=== PATIENT | female | born 1945 | race Caucasian/White ===

== ENCOUNTER 2016-06-03 14:42 | Day surgery (SDC) | payer OTHER ==
[~2016-06-03] VITALS: Ht 157.5 cm; Wt 98.0 kg
[~2016-06-03 14:42] MED LIST: ASMANEX TW200 MICRO1 IH; BENTYL10 MG PO; DESYREL100 MG PO; ESOMEPRAZOLE MA40 MG PO; NEURONTIN600 MG PO; PRAVACHOL40 MG PO; QUESTRAN PACKET4 GM PO; ROBAXIN500 MG PO; SINGULAIR CHEWAB5 MG PO; SYNTHROID88 MCG PO; TENORMIN25 MG PO; TRICOR145 MG PO; ULTRAM ER100 MG PO; VENTOLIN HFA18 GM IH; ZYRTEC10 M2 PO
== END 2016-06-03 16:40 | disposition home or self-care (01) ==
LOC: PAIN 14:42 → SDC 15:15 → PAIN 16:40
PROC: 3E0U33Z Introduction of Anti-inflammatory into Joints, Percutaneous Approach (ICD-10-PCS; principal; 2016-06-03)
DX: M46.1 Sacroiliitis, not elsewhere classified (principal); F41.1 Generalized anxiety disorder; J45.909 Unspecified asthma, uncomplicated; M19.90 Unspecified osteoarthritis, unspecified site; M54.5 Low back pain; K21.9 Gastro-esophageal reflux disease without esophagitis; M79.1 Myalgia; M54.2 Cervicalgia; G47.33 Obstructive sleep apnea (adult) (pediatric)
CPT/HCPCS: J1030; J2250; J3010; S0020

== ENCOUNTER 2016-07-03 10:11 | Day surgery (SDC) | payer OTHER ==
[~2016-07-03] VITALS: Ht 157.5 cm; Wt 98.0 kg
[~2016-07-03 10:11] MED LIST changes: +NEXIUM40 MG PO; +TYLENOL ARTHRI650 MG PO
== END 2016-07-03 13:40 | disposition home or self-care (01) ==
LOC: PAIN 10:11 → SDC 11:00 → PAIN 13:40
PROC: 3E0S33Z Introduction of Anti-inflammatory into Epidural Space, Percutaneous Approach (ICD-10-PCS; principal; 2016-07-03)
DX: M50.13 Cervical disc disorder with radiculopathy, cervicothoracic region (principal); F41.9 Anxiety disorder, unspecified; M47.816 Spondylosis without myelopathy or radiculopathy, lumbar region; G62.9 Polyneuropathy, unspecified; M46.1 Sacroiliitis, not elsewhere classified; M75.52 Bursitis of left shoulder; M75.51 Bursitis of right shoulder; I49.9 Cardiac arrhythmia, unspecified; K21.9 Gastro-esophageal reflux disease without esophagitis; E03.9 Hypothyroidism, unspecified; M19.90 Unspecified osteoarthritis, unspecified site; E78.5 Hyperlipidemia, unspecified; K58.9 Irritable bowel syndrome, unspecified; G47.00 Insomnia, unspecified; E66.9 Obesity, unspecified; Z68.38 Body mass index [BMI] 38.0-38.9, adult; Z88.8 Allergy status to other drugs, medicaments and biological substances
CPT/HCPCS: J1030; J2250; J3010

== ENCOUNTER 2016-07-05 13:59 | Inpatient (IN) | payer OTHER ==
[~2016-07-05] VITALS: Ht 157.5 cm; Wt 94.7 kg
[2016-07-05 15:24] LABS: HEMATOCRIT 35.6 % (36.0-46.0); MCH 29.6 PG (29.0-34.0); MCHC 33.4 G/DL (30.0-36.0); MCV 88.6 FL (83-99); MEAN PLAT.VOLUME 9.3 uM^3 (9.5-12.4); PLATELET COUNT 292 K/uL (156-360); RBC DIS.WIDTH-CV 13.2 % (11.8-14.6); RBC DIS.WIDTH-SD 41.7 % (39-53); RED BLOOD COUNT 4.02 M/uL (3.80-5.20); WHITE BLOOD COUNT 18.2 K/uL (4.1-10.2)
[2016-07-05 15:25] LABS: EOSINOPHIL (%) 0.4 % (0-5); EOSINOPHIL COUNT 0.1 K/uL (0-0.3); IMMATURE GRANULOCYTE (%) 0.2 % (0.0-0.7); IMMATURE GRANULOCYTE COUNT 0.4 K/uL; LYMPHOCYTE COUNT 2.1 K/uL (1.0-2.8); MONOCYTE (%) 8.8 % (3-12); MONOCYTE COUNT 1.6 K/uL (0-0.8); NEUTROPHIL (%) 79.1 % (45-76); NEUTROPHIL COUNT 14.4 K/uL (1.8-6.4)
[2016-07-05 15:36] LABS: CHLORIDE 100 mEq/L (99-109); POTASSIUM 3.6 mEq/L (3.7-5.4); SODIUM 134 mEq/L (136-147)
[2016-07-05 15:38] LABS: GLUCOSE 147 mg/dL (70-99)
[2016-07-05 15:39] LABS: ANION GAP 11 MEQ/L (2-14)
[2016-07-05 15:42] LABS: GFR ESTIMATE (CALCULATED) > 59 mL/min/
[2016-07-05 15:43] LABS: UREA NITROGEN (BUN) 9 mg/dL (9-23)
[2016-07-05 16:30] LABS: ADD MIUA? YES; BILIRUBIN NEGATIVE; BLOOD NEGATIVE; COLOR AMBER ((YELLOW)); GLUCOSE (STRIP) NEGATIVE; KETONES NEGATIVE; LEUKOCYTES TRACE; NITRITE NEGATIVE; PROTEIN (STRIP) NEGATIVE; SPECIFIC GRAVITY 1.017 (1.000-1.030); UROBILINOGEN 0.2 MG/DL (0.2-1.0)
[2016-07-05 16:45] LABS: BACTERIA RARE /HPF; EPITHELIAL CELLS RARE /HPF; MUCUS TRACE /LPF; RED BLOOD CELLS 0-5 /HPF (0-5); UCUL ADDED? NO
[2016-07-05] MEDS ORDERED: ZYRTEC10 M2 PO (21:24)
[2016-07-05] MEDS ORDERED: SYNTHROID88 MCG PO (21:32)
[2016-07-05 22:38] LABS: POINT-OF-CARE METER ID UU14100415
[2016-07-06] VITALS (8 sets, daily range): BP systolic 111–149; BP diastolic 58–83
[2016-07-06 11:38] LABS: EOSINOPHIL (%) 0.4 % (0-5); EOSINOPHIL COUNT 0.1 K/uL (0-0.3); HEMATOCRIT 35.1 % (36.0-46.0); IMMATURE GRANULOCYTE (%) 0.3 % (0.0-0.7); IMMATURE GRANULOCYTE COUNT 0.1 K/uL; LYMPHOCYTE COUNT 1.7 K/uL (1.0-2.8); MCHC 32.8 G/DL (30.0-36.0); MCV 88.6 FL (83-99); MEAN PLAT.VOLUME 9.3 uM^3 (9.5-12.4); MONOCYTE (%) 10.4 % (3-12); MONOCYTE COUNT 1.5 K/uL (0-0.8); NEUTROPHIL (%) 76.8 % (45-76); NEUTROPHIL COUNT 11.1 K/uL (1.8-6.4); PLATELET COUNT 279 K/uL (156-360); RBC DIS.WIDTH-CV 13.4 % (11.8-14.6); RBC DIS.WIDTH-SD 43.1 % (39-53); RED BLOOD COUNT 3.96 M/uL (3.80-5.20); WHITE BLOOD COUNT 14.5 K/uL (4.1-10.2)
[2016-07-06 12:03] LABS: ANION GAP 7 MEQ/L (2-14); CHLORIDE 102 MEQ/L (99-109); GFR ESTIMATE (CALCULATED) > 59 mL/min/; GLUCOSE 135 mg/dL (70-99); POTASSIUM 3.3 MEQ/L (3.7-5.4); SAMPLE HEMOLYSIS CHECK 0; SAMPLE ICTERIC CHECK 0; SAMPLE LIPEMIA CHECK 0; SODIUM 138 MEQ/L (136-147); UREA NITROGEN (BUN) 10 mg/dL (9-23)
[2016-07-06 13:59] LABS: C DIFF TOXIN NEGATIVE (NEGATIVE); PROBE CHECK PASS; SPECIMEN PROCESSING CONTROL PASS
[2016-07-07 03:28] VITALS: BP 114/60
[2016-07-07 07:51] LABS: EOSINOPHIL (%) 1.2 % (0-5); EOSINOPHIL COUNT 0.1 K/uL (0-0.3); HEMATOCRIT 34.9 % (36.0-46.0); IMMATURE GRANULOCYTE (%) 0.3 % (0.0-0.7); LYMPHOCYTE COUNT 2.2 K/uL (1.0-2.8); MCH 28.8 PG (29.0-34.0); MCHC 32.4 G/DL (30.0-36.0); MEAN PLAT.VOLUME 9.7 uM^3 (9.5-12.4); MONOCYTE (%) 7.5 % (3-12); MONOCYTE COUNT 0.7 K/uL (0-0.8); NEUTROPHIL (%) 68.3 % (45-76); NEUTROPHIL COUNT 6.5 K/uL (1.8-6.4); PLATELET COUNT 303 K/uL (156-360); RBC DIS.WIDTH-CV 13.5 % (11.8-14.6); RBC DIS.WIDTH-SD 43.7 % (39-53); RED BLOOD COUNT 3.92 M/uL (3.80-5.20); WHITE BLOOD COUNT 9.6 K/uL (4.1-10.2)
[2016-07-07 08:09] LABS: ANION GAP 10 MEQ/L (2-14); CHLORIDE 104 MEQ/L (99-109); GFR ESTIMATE (CALCULATED) > 59 mL/min/; GLUCOSE 112 mg/dL (70-99); POTASSIUM 3.7 MEQ/L (3.7-5.4); SAMPLE HEMOLYSIS CHECK 0; SAMPLE ICTERIC CHECK 0; SAMPLE LIPEMIA CHECK 0; SODIUM 142 MEQ/L (136-147); UREA NITROGEN (BUN) 12 mg/dL (9-23)
[2016-07-07 08:16] VITALS: BP 124/56
[2016-07-07 11:42] VITALS: BP 107/52
[2016-07-07 16:00] VITALS: BP 127/75
[2016-07-07 20:00] VITALS: BP 132/60
[2016-07-07 23:56] VITALS: BP 121/57
[2016-07-08 03:32] VITALS: BP 116/57
[2016-07-08 07:57] VITALS: BP 120/64
[2016-07-08 11:29] VITALS: BP 142/65
== END 2016-07-08 15:36 | disposition home or self-care (01) | DRG 690 ==
LOC: EME 13:59 → EDOF 07-06 00:35 → 2EAST 07-06 00:35
PROVIDERS: Emergency Medicine; Hospitalist; Internal Medicine
DX: N39.0 Urinary tract infection, site not specified (principal); R50.9 Fever, unspecified; D72.829 Elevated white blood cell count, unspecified; I10 Essential (primary) hypertension; Z98.890 Other specified postprocedural states; E03.9 Hypothyroidism, unspecified; M50.90 Cervical disc disorder, unspecified, unspecified cervical region
CPT/HCPCS: 70450; 70553; 71010; 72156; 80048; 81003; 82948; 83605; 85025; 87040; 87086; 87493; 99202; 99281; 99285; J0696; J1650; J2543; J3370; J7050

== ENCOUNTER 2016-08-26 09:02 | Day surgery (SDC) | payer OTHER ==
[~2016-08-26] VITALS: Ht 157.5 cm; Wt 97.5 kg
[~2016-08-26 09:02] MED LIST changes: +B-1100 MG PO; +CITRACAL + D C1 EACH PO; +NAPROSYN500 MG PO; +VITAMIN B-6250 MG PO; +VITAMIN D-32000 UNI2 PO
[2016-08-26] MEDS ORDERED: CALCIUM 500 MG1 EACH PO (09:35)
== END 2016-08-26 10:40 | disposition home or self-care (01) ==
LOC: PAIN 09:02 → SDC 09:45 → PAIN 09:45
PROC: 015B3ZZ Destruction of Lumbar Nerve, Percutaneous Approach (ICD-10-PCS; principal; 2016-08-26)
DX: M47.816 Spondylosis without myelopathy or radiculopathy, lumbar region (principal); F41.9 Anxiety disorder, unspecified; M51.36 Other intervertebral disc degeneration, lumbar region; G62.9 Polyneuropathy, unspecified; M50.90 Cervical disc disorder, unspecified, unspecified cervical region; M54.12 Radiculopathy, cervical region; M46.1 Sacroiliitis, not elsewhere classified; K21.9 Gastro-esophageal reflux disease without esophagitis; I49.9 Cardiac arrhythmia, unspecified; E03.9 Hypothyroidism, unspecified; M19.90 Unspecified osteoarthritis, unspecified site; G47.00 Insomnia, unspecified; E78.5 Hyperlipidemia, unspecified; K58.9 Irritable bowel syndrome, unspecified; E66.9 Obesity, unspecified; Z68.39 Body mass index [BMI] 39.0-39.9, adult; Z88.8 Allergy status to other drugs, medicaments and biological substances
CPT/HCPCS: J1030; J2250; J3010; S0020

== ENCOUNTER 2016-09-12 04:05 | Emergency (ER) | payer OTHER ==
[~2016-09-12] VITALS: Ht 157.5 cm; Wt 100.6 kg
[~2016-09-12 04:05] MED LIST changes: +CALCIUM 500 MG1 EACH PO
[2016-09-12 05:30] LABS: CHLORIDE 100 mEq/L (99-109); SODIUM 139 mEq/L (136-147)
[2016-09-12 05:33] LABS: GLUCOSE 151 mg/dL (70-99)
[2016-09-12 05:34] LABS: ANION GAP 15 MEQ/L (2-14)
[2016-09-12 05:35] LABS: TOTAL BILIRUBIN 1.1 mg/dL (0.0-1.0)
[2016-09-12 05:36] LABS: ALKALINE PHOSPHATASE 369 IU/L (3-129); GFR ESTIMATE (CALCULATED) > 59 mL/min/
[2016-09-12 05:37] LABS: UREA NITROGEN (BUN) 13 mg/dL (9-23)
[2016-09-12 05:45] LABS: HEMATOCRIT 32.3 % (36.0-46.0); MCH 28.8 PG (29.0-34.0); MCHC 32.5 G/DL (30.0-36.0); MCV 88.7 FL (83-99); RBC DIS.WIDTH-CV 14.9 % (11.8-14.6); RBC DIS.WIDTH-SD 48.3 % (39-53); RED BLOOD COUNT 3.64 M/uL (3.80-5.20); WHITE BLOOD COUNT 17.3 K/uL (4.1-10.2)
[2016-09-12 05:53] LABS: PLATELET COUNT 519 K/uL (156-360)
[2016-09-12 06:15] LABS: INTER. NORMALIZED RATIO 1.2; PROTHROMBIN TIME 12.4 (9.2-11.2); PTT 42.2 (25-32)
[2016-09-12 06:23] LABS: LIPASE 54 U/L (1.0-51.0)
[2016-09-12 06:29] LABS: TROP-I INTERPRETATION NEGATIVE; TROPONIN-I < 0.01 ng/mL (0.0-0.30)
[2016-09-12 07:20] LABS: ADD MIUA? YES; BILIRUBIN NEGATIVE; BLOOD NEGATIVE; COLOR YELLOW ((YELLOW)); GLUCOSE (STRIP) NEGATIVE; KETONES NEGATIVE; LEUKOCYTES TRACE; NITRITE NEGATIVE; PROTEIN (STRIP) NEGATIVE; UROBILINOGEN 0.2 MG/DL (0.2-1.0)
[2016-09-12 07:23] LABS: BACTERIA NONE SEEN /HPF; CALCIUM OXALATE CRYSTALS 1+ /HPF; EPITHELIAL CELLS RARE /HPF; MUCUS NONE SEEN /LPF; RED BLOOD CELLS 0-5 /HPF (0-5); UCUL ADDED? NO; WHITE BLOOD CELLS 0-5 /HPF (0-5)
[2016-09-12] MEDS ORDERED: TRAMADOL HCL E100 M1 PO (09:42)
[2016-09-12] MEDS ORDERED: CALCIUM600 M1 PO (09:42)
[2016-09-12] MEDS ORDERED: ASMANEX HFA13 GM IH (09:43)
[2016-09-12] MEDS ORDERED: VITAMIN D31000 UNIT PO (09:44)
[2016-09-12] MEDS ORDERED: B COMPLETE1 EACH PO (09:44)
[2016-09-12] MEDS ORDERED: [UNRECOGNIZED DRUG - OTHER] PO (09:45)
[2016-09-12 14:46] VITALS: BP 144/69
== END 2016-09-12 15:14 | disposition short-term general hospital (02) ==
LOC: EME 04:05 → EDOF 10:47
DX: C25.9 Malignant neoplasm of pancreas, unspecified (principal); K31.1 Adult hypertrophic pyloric stenosis; I81 Portal vein thrombosis; R79.89 Other specified abnormal findings of blood chemistry; D72.829 Elevated white blood cell count, unspecified; J45.909 Unspecified asthma, uncomplicated; Z90.49 Acquired absence of other specified parts of digestive tract; Z90.710 Acquired absence of both cervix and uterus
CPT/HCPCS: 74177; 74183; 80053; 81003; 83605; 83690; 84484; 85027; 85610; 85730; 87040; 99281; 99285; J0744; J2270; J2405; J7030

== ENCOUNTER 2016-11-05 20:23 | Inpatient (IN) | payer OTHER ==
[~2016-11-05] VITALS: Ht 157.5 cm; Wt 96.3 kg
[~2016-11-05 20:23] MED LIST changes: +ASMANEX HFA13 GM IH; +B COMPLETE1 EACH PO; +CALCIUM600 M1 PO; +TRAMADOL HCL E100 M1 PO; +VITAMIN D31000 UNIT PO; +[UNRECOGNIZED DRUG - OTHER] PO
[2016-11-05 21:52] LABS: ADD MIUA? YES; BILIRUBIN NEGATIVE; BLOOD NEGATIVE; COLOR YELLOW ((YELLOW)); GLUCOSE (STRIP) NEGATIVE; KETONES NEGATIVE; LEUKOCYTES NEGATIVE; NITRITE NEGATIVE; PROTEIN (STRIP) NEGATIVE; SPECIFIC GRAVITY 1.014 (1.000-1.030); UROBILINOGEN 0.2 MG/DL (0.2-1.0)
[2016-11-05 22:00] LABS: EOSINOPHIL (%) 0.5 % (0-5); HEMATOCRIT 38.4 % (36.0-46.0); IMMATURE GRANULOCYTE (%) 0.3 % (0.0-0.7); INSTRUMENT ABS NEUTROPHIL CT 5.9 K/uL; LYMPHOCYTE COUNT 0.9 K/uL (1.0-2.8); MCH 29.3 PG (29.0-34.0); MCHC 32.8 G/DL (30.0-36.0); MCV 89.3 FL (83-99); MEAN PLAT.VOLUME 10.7 uM^3 (9.5-12.4); MONOCYTE (%) 7.7 % (3-12); MONOCYTE COUNT 0.6 K/uL (0-0.8); NEUTROPHIL (%) 78.9 % (45-76); NEUTROPHIL COUNT 5.9 K/uL (1.8-6.4); PLATELET COUNT 171 K/uL (156-360); RBC DIS.WIDTH-CV 14.8 % (11.8-14.6); RBC DIS.WIDTH-SD 48.2 % (39-53); WHITE BLOOD COUNT 7.4 K/uL (4.1-10.2)
[2016-11-05 22:08] LABS: BACTERIA NONE SEEN /HPF; EPITHELIAL CELLS RARE /HPF; MUCUS NONE SEEN /LPF; RED BLOOD CELLS 0-5 /HPF (0-5); UCUL ADDED? NO; WHITE BLOOD CELLS 0-5 /HPF (0-5)
[2016-11-05 22:09] LABS: CHLORIDE 98 mEq/L (99-109)
[2016-11-05 22:11] LABS: SODIUM 133 mEq/L (136-147)
[2016-11-05 22:13] LABS: ANION GAP 12 MEQ/L (2-14)
[2016-11-05 22:14] LABS: TOTAL BILIRUBIN 0.7 mg/dL (0.0-1.0)
[2016-11-05 22:15] LABS: ALKALINE PHOSPHATASE 258 IU/L (3-129); GFR ESTIMATE (CALCULATED) > 59 mL/min/
[2016-11-05 22:17] LABS: DIRECT BILIRUBIN 0.4 mg/dL (0.0-0.3); UREA NITROGEN (BUN) 12 mg/dL (9-23)
[2016-11-05 22:19] LABS: LIPASE 16 U/L (1.0-51.0)
[2016-11-05 22:21] LABS: TROP-I INTERPRETATION NEGATIVE; TROPONIN-I < 0.01 ng/mL (0.0-0.30)
[2016-11-05 22:31] LABS: GLUCOSE 115 mg/dL (70-99)
[2016-11-06] MEDS ORDERED: PRAVACHOL20 MG PO (00:34)
[2016-11-06] MEDS ORDERED: TRAMADOL HCL50 MG PO (00:35)
[2016-11-06] MEDS ORDERED: TYLENOL EXTRA500 MG PO (00:36)
[2016-11-06] MEDS ORDERED: TUMS500 MG PO (00:37)
[2016-11-06] MEDS ORDERED: PROBIOTIC1 EAC1 PO (00:39)
[2016-11-06] MEDS ORDERED: [UNRECOGNIZED DRUG - CODE] IV (00:42)
[2016-11-06 03:38] VITALS: BP 128/61
[2016-11-06 08:19] VITALS: BP 131/59
[2016-11-06 11:44] VITALS: BP 124/62
[2016-11-06 16:22] VITALS: BP 127/56
[2016-11-06 19:44] VITALS: BP 143/67
[2016-11-06 23:42] VITALS: BP 119/57
[2016-11-07 03:34] VITALS: BP 141/66
[2016-11-07 06:06] LABS: HEMATOCRIT 34.2 % (36.0-46.0); MCH 29.4 PG (29.0-34.0); MCHC 32.2 G/DL (30.0-36.0); MCV 91.4 FL (83-99); MEAN PLAT.VOLUME 10.1 uM^3 (9.5-12.4); PLATELET COUNT 122 K/uL (156-360); RBC DIS.WIDTH-CV 14.8 % (11.8-14.6); RBC DIS.WIDTH-SD 50.1 % (39-53); RED BLOOD COUNT 3.74 M/uL (3.80-5.20); WHITE BLOOD COUNT 4.8 K/uL (4.1-10.2)
[2016-11-07 06:43] LABS: ANION GAP 8 MEQ/L (2-14); CHLORIDE 105 MEQ/L (99-109); GFR ESTIMATE (CALCULATED) > 59 mL/min/; GLUCOSE 105 mg/dL (70-99); POTASSIUM 3.9 MEQ/L (3.7-5.4); SAMPLE HEMOLYSIS CHECK 0; SAMPLE ICTERIC CHECK 0; SAMPLE LIPEMIA CHECK 0; TOTAL BILIRUBIN 0.6 MG/DL (0.0-1.0); UREA NITROGEN (BUN) 12 mg/dL (9-23)
[2016-11-07 06:45] LABS: ALKALINE PHOSPHATASE 159 IU/L (3-129); SODIUM 140 MEQ/L (136-147)
[2016-11-07 07:25] VITALS: BP 123/60
[2016-11-07 11:27] VITALS: BP 119/75
[2016-11-07 15:19] VITALS: BP 123/71
[2016-11-08 00:07] VITALS: BP 128/58
[2016-11-08] MEDS ORDERED: CIPRO500 MG PO (08:47)
[2016-11-08 11:10] VITALS: BP 127/64
[2016-11-08 11:55] LABS: C DIFF TOXIN NEGATIVE (NEGATIVE)
[2016-11-08 11:56] LABS: PROBE CHECK PASS; SPECIMEN PROCESSING CONTROL PASS
== END 2016-11-08 15:12 | disposition home health service (06) | DRG 193 ==
LOC: EME → EDBD 20:23 → EME 20:23 → EDOF 11-06 01:45 → 5SOUTH 11-06 01:45
PROVIDERS: Emergency Medicine; Hospitalist; Internal Medicine
DX: J18.9 Pneumonia, unspecified organism (principal); K65.1 Peritoneal abscess; A42.89 Other forms of actinomycosis; E87.1 Hypo-osmolality and hyponatremia; I81 Portal vein thrombosis; G62.9 Polyneuropathy, unspecified; E03.9 Hypothyroidism, unspecified; E78.5 Hyperlipidemia, unspecified; G47.33 Obstructive sleep apnea (adult) (pediatric); M79.7 Fibromyalgia; K21.9 Gastro-esophageal reflux disease without esophagitis; K90.0 Celiac disease; J45.909 Unspecified asthma, uncomplicated; M19.90 Unspecified osteoarthritis, unspecified site; Y95 Nosocomial condition; Z96.641 Presence of right artificial hip joint; E66.9 Obesity, unspecified; Z68.38 Body mass index [BMI] 38.0-38.9, adult; Z82.3 Family history of stroke
CPT/HCPCS: 71010; 71250; 74177; 80048; 80053; 80076; 81003; 83605; 83690; 84484; 85025; 85027; 85651; 86140; 87040; 87493; 93005; 93306; 94640; 94640 76; 99202; 99281; 99285; J0692; J1644; J1885; J2270; J2405; J2540; J2543; J3370; J7030; J7050

== ENCOUNTER 2016-11-15 14:47 | Observation (INO) | payer OTHER ==
[~2016-11-15] VITALS: Ht 157.5 cm; Wt 95.4 kg
[~2016-11-15 14:47] MED LIST changes: +CIPRO500 MG PO; +PRAVACHOL20 MG PO; +PROBIOTIC1 EAC1 PO; +TRAMADOL HCL50 MG PO; +TUMS500 MG PO; +TYLENOL EXTRA500 MG PO; +[UNRECOGNIZED DRUG - CODE] IV
[2016-11-15 15:39] LABS: HEMATOCRIT 37.8 % (36.0-46.0); MCH 28.3 PG (29.0-34.0); MCHC 31.7 G/DL (30.0-36.0); MCV 89.2 FL (83-99); MEAN PLAT.VOLUME 9.8 uM^3 (9.5-12.4); PLATELET COUNT 235 K/uL (156-360); RBC DIS.WIDTH-CV 14.7 % (11.8-14.6); RBC DIS.WIDTH-SD 48.2 % (39-53); RED BLOOD COUNT 4.24 M/uL (3.80-5.20); WHITE BLOOD COUNT 8.5 K/uL (4.1-10.2)
[2016-11-15 15:44] LABS: CHLORIDE 100 mEq/L (99-109); SODIUM 136 mEq/L (136-147)
[2016-11-15 15:45] LABS: GLUCOSE 121 mg/dL (70-99)
[2016-11-15 15:47] LABS: ANION GAP 10 MEQ/L (2-14)
[2016-11-15 15:49] LABS: GFR ESTIMATE (CALCULATED) > 59 mL/min/
[2016-11-15 15:50] LABS: UREA NITROGEN (BUN) 10 mg/dL (9-23)
[2016-11-15 15:54] LABS: TROP-I INTERPRETATION NEGATIVE; TROPONIN-I < 0.01 ng/mL (0.0-0.30)
[2016-11-15 16:21] LABS: D-DIMER ELISA 1.28 mg/L FEU (< 0.57)
[2016-11-15 19:32] LABS: TOTAL BILIRUBIN 0.6 mg/dL (0.0-1.0)
[2016-11-15 19:33] LABS: ALKALINE PHOSPHATASE 281 IU/L (3-129)
[2016-11-15 19:35] LABS: DIRECT BILIRUBIN 0.4 mg/dL (0.0-0.3)
[2016-11-15 19:36] LABS: LIPASE 12 U/L (1.0-51.0)
[2016-11-15] MEDS ORDERED: BENTYL10 MG PO (21:59)
[2016-11-15] MEDS ORDERED: B-COMPLEX-VITA1 EACH PO (22:00)
[2016-11-16 01:07] LABS: TROP-I INTERPRETATION NEGATIVE; TROPONIN-I < 0.01 ng/mL (0.0-0.30)
[2016-11-16 01:30] VITALS: BP 111/51
[2016-11-16 04:27] LABS: TROP-I INTERPRETATION NEGATIVE; TROPONIN-I < 0.01 ng/mL (0.0-0.30)
[2016-11-16 08:03] VITALS: BP 116/58
== END 2016-11-16 09:45 | disposition home or self-care (01) ==
LOC: EME 14:47 → EDOF 11-16 00:19 → 5WEST 11-16 01:09
PROVIDERS: Emergency Medicine; Nurse Practitioner Family
DX: R07.9 Chest pain, unspecified (principal); A42.9 Actinomycosis, unspecified; E03.9 Hypothyroidism, unspecified; E66.9 Obesity, unspecified; Z68.38 Body mass index [BMI] 38.0-38.9, adult; E78.5 Hyperlipidemia, unspecified; G47.33 Obstructive sleep apnea (adult) (pediatric); G62.9 Polyneuropathy, unspecified; K90.0 Celiac disease; M79.7 Fibromyalgia; Z82.3 Family history of stroke; Z79.82 Long term (current) use of aspirin; Z96.652 Presence of left artificial knee joint; Z96.641 Presence of right artificial hip joint; Z96.612 Presence of left artificial shoulder joint; Z88.8 Allergy status to other drugs, medicaments and biological substances; Z91.09 Other allergy status, other than to drugs and biological substances
CPT/HCPCS: 71020; 71275; 80048; 80076; 83690; 84484; 85027; 85379; 93005; 99281; 99285; G0378; J1650; J1885; J2270; J2405; J7030

== ENCOUNTER 2017-08-06 08:38 | Day surgery (SDC) | payer OTHER, MEDICARE ==
[~2017-08-06] VITALS: Ht 157.5 cm; Wt 99.8 kg
[~2017-08-06 08:38] MED LIST changes: +ADVAIR 250/501 DISK IH; +B-COMPLEX-VITA1 EACH PO
== END 2017-08-06 11:42 | disposition home or self-care (01) ==
LOC: PAIN 08:38 → SDC 09:00 → PAIN 11:42
DX: M53.3 Sacrococcygeal disorders, not elsewhere classified (principal); M46.1 Sacroiliitis, not elsewhere classified; M79.7 Fibromyalgia; M47.816 Spondylosis without myelopathy or radiculopathy, lumbar region; M51.36 Other intervertebral disc degeneration, lumbar region; K21.9 Gastro-esophageal reflux disease without esophagitis; D64.9 Anemia, unspecified; J45.909 Unspecified asthma, uncomplicated; E78.5 Hyperlipidemia, unspecified; E03.9 Hypothyroidism, unspecified; G47.33 Obstructive sleep apnea (adult) (pediatric); R73.03 Prediabetes; I49.9 Cardiac arrhythmia, unspecified; Z79.891 Long term (current) use of opiate analgesic
CPT/HCPCS: J1030; J2250; S0020

== ENCOUNTER 2017-09-17 06:58 | Day surgery (SDC) | payer OTHER, MEDICARE ==
[~2017-09-17] VITALS: Ht 157.5 cm; Wt 90.7 kg
[~2017-09-17 06:58] MED LIST changes: -ADVAIR 250/501 DISK IH; +ADVAIR HFA120 INHAL1 IH
== END 2017-09-17 09:02 | disposition home or self-care (01) ==
LOC: PAIN 06:58 → SDC 07:30 → PAIN 07:30
DX: M47.816 Spondylosis without myelopathy or radiculopathy, lumbar region (principal); M51.36 Other intervertebral disc degeneration, lumbar region; M19.90 Unspecified osteoarthritis, unspecified site; G62.9 Polyneuropathy, unspecified; M50.90 Cervical disc disorder, unspecified, unspecified cervical region; E66.01 Morbid (severe) obesity due to excess calories; Z68.41 Body mass index [BMI] 40.0-44.9, adult; J45.909 Unspecified asthma, uncomplicated; D64.9 Anemia, unspecified; K21.9 Gastro-esophageal reflux disease without esophagitis; E78.5 Hyperlipidemia, unspecified; E03.9 Hypothyroidism, unspecified; G47.33 Obstructive sleep apnea (adult) (pediatric); R73.03 Prediabetes; Z88.8 Allergy status to other drugs, medicaments and biological substances; Z91.048 Other nonmedicinal substance allergy status
CPT/HCPCS: J1030; J2250; S0020

== ENCOUNTER 2017-10-06 08:00 | Day surgery (SDC) | payer OTHER, MEDICARE ==
[~2017-10-06] VITALS: Ht 157.5 cm; Wt 90.7 kg
== END 2017-10-06 10:13 | disposition home or self-care (01) ==
LOC: PAIN 08:00 → SDC 08:45 → PAIN 10:13
PROC: BR161ZZ Fluoroscopy of Lumbar Facet Joint(s) using Low Osmolar Contrast (ICD-10-PCS; principal; 2017-10-06)
PROC: 3E0T3TZ Introduction of Destructive Agent into Peripheral Nerves and Plexi, Percutaneous Approach (ICD-10-PCS; principal; 2017-10-06)
DX: M47.816 Spondylosis without myelopathy or radiculopathy, lumbar region (principal); M51.36 Other intervertebral disc degeneration, lumbar region; M79.7 Fibromyalgia; E66.01 Morbid (severe) obesity due to excess calories; Z68.36 Body mass index [BMI] 36.0-36.9, adult; K21.9 Gastro-esophageal reflux disease without esophagitis; E78.5 Hyperlipidemia, unspecified; E03.9 Hypothyroidism, unspecified; G47.33 Obstructive sleep apnea (adult) (pediatric); R73.03 Prediabetes; I49.9 Cardiac arrhythmia, unspecified; Z95.1 Presence of aortocoronary bypass graft; Z88.2 Allergy status to sulfonamides
CPT/HCPCS: J1030; J2250; S0020

== ENCOUNTER 2017-11-10 12:04 | Day surgery (SDC) | payer OTHER, MEDICARE ==
[~2017-11-10] VITALS: Ht 157.5 cm; Wt 105.2 kg
== END 2017-11-10 13:33 | disposition home or self-care (01) ==
LOC: PAIN 12:04 → SDC 12:30 → PAIN 12:30
PROC: B01B0ZZ Fluoroscopy of Spinal Cord using High Osmolar Contrast (ICD-10-PCS; principal; 2017-11-10)
DX: M47.812 Spondylosis without myelopathy or radiculopathy, cervical region (principal); M50.90 Cervical disc disorder, unspecified, unspecified cervical region; Z53.09 Procedure and treatment not carried out because of other contraindication
CPT/HCPCS: J1030; J2250; S0020

== ENCOUNTER 2017-12-31 09:58 | Day surgery (SDC) | payer OTHER, MEDICARE ==
[~2017-12-31] VITALS: Ht 157.5 cm; Wt 104.3 kg
[~2017-12-31 09:58] MED LIST changes: +K-DUR10 MEQ PO; +LASIX40 MG PO
[2017-12-31] MEDS ORDERED: TYLENOL ARTHRI650 MG PO (10:44)
== END 2017-12-31 12:05 | disposition home or self-care (01) ==
LOC: PAIN 09:58 → SDC 10:15 → PAIN 12:05
PROC: 3E0U3BZ Introduction of Anesthetic Agent into Joints, Percutaneous Approach (ICD-10-PCS; principal; 2017-12-31)
PROC: 3E0U33Z Introduction of Anti-inflammatory into Joints, Percutaneous Approach (ICD-10-PCS; principal; 2017-12-31)
DX: M53.3 Sacrococcygeal disorders, not elsewhere classified (principal); M46.1 Sacroiliitis, not elsewhere classified; M47.812 Spondylosis without myelopathy or radiculopathy, cervical region; M79.7 Fibromyalgia; M47.816 Spondylosis without myelopathy or radiculopathy, lumbar region; E66.01 Morbid (severe) obesity due to excess calories; Z68.41 Body mass index [BMI] 40.0-44.9, adult; K21.9 Gastro-esophageal reflux disease without esophagitis; J45.909 Unspecified asthma, uncomplicated; E78.5 Hyperlipidemia, unspecified; E03.9 Hypothyroidism, unspecified; G47.33 Obstructive sleep apnea (adult) (pediatric); R73.03 Prediabetes; Z79.899 Other long term (current) drug therapy; Z88.2 Allergy status to sulfonamides; Z88.1 Allergy status to other antibiotic agents; Z91.040 Latex allergy status; Z88.7 Allergy status to serum and vaccine; Z88.8 Allergy status to other drugs, medicaments and biological substances; Z91.018 Allergy to other foods
CPT/HCPCS: J1030; J2250; J3010; S0020